=== PATIENT | male | born 1960 | race Two or more races ===

== ENCOUNTER 2017-12-30 23:33 | Emergency (ER) | payer OTHER ==
[~2017-12-30] VITALS: Ht 175.3 cm; Wt 90.7 kg
[2017-12-30 23:42] VITALS: BP 171/95
[2017-12-31] MEDS ORDERED: HYDROCODONE/APAP 5/325MG 1 EACH TABLET PO ONE (00:30)
[2017-12-31] MEDS ORDERED: HYDROCODONE/APAP 5/325MG 1 EACH TABLET ONE (00:35)
[2017-12-31] MEDS ORDERED: NAPROXEN 250 MG TABLET ONE (00:44)
[2017-12-31] MEDS ORDERED: NAPROXEN 500 MG TABLET PO SCH (01:00)
== END 2017-12-31 01:35 | disposition home or self-care (01) ==
LOC: ER 23:55
DX: S39.012A Strain of muscle, fascia and tendon of lower back, initial encounter (principal); M51.26 Other intervertebral disc displacement, lumbar region; E78.5 Hyperlipidemia, unspecified; V49.59XA Passenger injured in collision with other motor vehicles in traffic accident, initial encounter; Y93.89 Activity, other specified; Y92.410 Unspecified street and highway as the place of occurrence of the external cause; Y99.8 Other external cause status
CPT/HCPCS: 72131-TC; A4606; Z7610